=== PATIENT | male | born 1990 | race Caucasian/White ===

== ENCOUNTER 2017-04-30 18:20 | Emergency (ER) | payer OTHER ==
[~2017-04-30] VITALS: Ht 172.7 cm; Wt 70.3 kg
--- NOTE | 2017-04-30 18:37 | NUR ---
PT IS IN ROOM #2A. WAITING FOR DR ARIAS EVALUATION.
[2017-04-30] MEDS ORDERED: CEPHALEXIN MONOHYDRATE 500 MG CAPSULE PO ONE (20:00)
[2017-04-30] MEDS ORDERED: predniSONE 20 MG TABLET PO ONE (20:00)
[2017-04-30] MEDS ORDERED: predniSONE 20 MG TABLET ONE (20:14)
[2017-04-30] MEDS ORDERED: CEPHALEXIN MONOHYDRATE 500 MG CAPSULE ONE (20:14)
--- NOTE | 2017-04-30 20:25 | NUR ---
Patient discharged to home in stable conditon. Written and verbal after care instructions given. Patient verbalizes understanding of instructions. Ambulated from ER with stable gait. All belongings with patient.
[2017-04-30 20:26] VITALS: BP 117/74
[2017-04-30] MEDS ORDERED: methylPREDNISolone ACETATE 40 MG VIAL IM ONE (20:30)
[2017-04-30] MEDS ORDERED: methylPREDNISolone SOD SUCC 40 MG/ML VIAL ONE (20:31)
== END 2017-04-30 20:26 | disposition home or self-care (01) ==
LOC: ER 18:21
DX: I88.9 Nonspecific lymphadenitis, unspecified (principal); K21.9 Gastro-esophageal reflux disease without esophagitis
CPT/HCPCS: 96372; 99283; A4663; J2920; J7512